=== PATIENT | male | born 1955 | race Caucasian/White ===

== ENCOUNTER 2019-10-28 18:19 | Emergency (ER) | payer MEDICARE, OTHER, SELFPAY ==
[2019-10-28 18:30] VITALS: BP 140/78; PULSE 40; RESP 14; TEMP 36.9; O2SAT 99; BMI 28.3
--- NOTE | 2019-10-28 18:33 | DI.RAD.S_ITS ---
PROCEDURE: XR FINGER LT MIN 2V INDICATIONS: Table saw injury left index finger TECHNIQUE: AP hand, 2 views of the left 1st finger(s) acquired. COMPARISON: None. FINDINGS: Bones: There are small radiopaque densities adjacent to the tuft of the left 1st digit. These may represent tiny radiopaque foreign bodies. Neck could also represent tiny ossific fragments although the adjacent distal phalanx of the 1st digit appears radiographically intact. There is soft tissue irregularity along the distal most aspect of the 1st digit consistent with laceration. 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 IMPRESSION: Tiny radiopaque densities In the distal 1st digit soft tissues are suspicious for tiny foreign bodies. There is no fracture. Dictated by: Polo Velez M.D. on 10/28/2019 at 19:03 Approved by: Polo Velez M.D. on 10/28/2019 at 19:05
--- NOTE | 2019-10-28 18:33 | DI.RAD.S_ITS ---
PROCEDURE: XR FINGER LT MIN 2V INDICATIONS: Table saw injury TECHNIQUE: AP left hand, 2 views of the left 1st finger(s) acquired. COMPARISON: None. FINDINGS: Tiny radiopaque densities adjacent to the tuft of the 1st distal phalanx are suspicious for radiopaque foreign bodies. Soft tissue irregularity representing laceration in the distal 1st digit. There is no fracture. IMPRESSION: Tiny radiopaque foreign bodies in the distal 1st digit with no evidence of fracture. Dictated by: Polo Velez M.D. on 10/28/2019 at 19:05 Approved by: Polo Velez M.D. on 10/28/2019 at 19:06
[2019-10-28] MEDS: BACITRACIN OINT 0.9 GM PCKT 2 APPLIC TOP (19:23)
[2019-10-28] MEDS: LIDO 1%/SOD BICARB 8.4% (10ML) 10 ML SYRINGE INJ (19:23)
[2019-10-28] MEDS: HYDROCODONE/ACET 5/325 TABLET 1 TAB PO (21:29)
--- NOTE | 2019-10-28 21:46 | ED.WOUNDLAC ---
HPI - Wound/Laceration <BASSEM Conley - Last Filed: 10/28/19 22:24> General Chief Complaint: Wound/Laceration Stated Complaint: SAW ACCIDENT LACERATION OF LEFT HAND THUMB SMALL F Time Seen by Provider: 10/28/19 18:36 Source: patient Mode of arrival: Ambulatory Limitations: no limitations History of Present Illness HPI narrative: This is a 64-year-old male, nonsmoker, presents to ED with significant after he had injured left, non dominant hand, thumb and index finger by a table saw at 1 pm today. Patient had received tetanus immunization last year since he had another injury to left 5th finger. Patient has partial nail removed in left thumb with deformed with deep laceration on lateral dorsal aspect of finger. Left index finger with vertical laceration extending from proximal to distal phalange in dorsal aspect. Patient reports aching pain in PIP of 2nd finger. Patient was referred by Dr. Cline at [facility] for xray test and treatment. Patient directed pressure dressing on affected finger and active bleeding has been controlled. Patient reports he has sensation to fingertips on affected fingers. He reports is able to move and flex/extend affected finger with some discomfort. Related Data Previous Rx's Medication Instructions Recorded cephalexin [Keflex] 500 mg PO Q6H 7 Days #28 cap 10/28/19 hydrocodone-acetaminophen [[place]] 1 tab PO TID PRN #7 tab 10/28/19 Allergies Allergy/AdvReac Type Severity Reaction Status Date / Time No Known Drug Allergies Allergy Verified 10/28/19 18:34 Review of Systems <BASSEM Conley - Last Filed: 10/28/19 22:24> Review of Systems Narrative: General: Denies fever, chills, fatigue, malaise, sweats. HEENT: Denies sinus pain, ear pain, sore throat, difficulty swallowing, dizziness. Respiratory: Denies dyspnea, cough, wheezing, hemoptysis, sputum. Cardiovascular: Denies chest pain, palpitations, orthopnea, edema. Gastrointestinal: Denies nausea, vomiting, abdominal pain, diarrhea, constipation, melena. : Denies dysuria, frequency, incontinence, hematuria, urinary retention. Musculoskeletal: See HPI Skin: See HPI Neurologic: Denies weakness, headache, numbness, change in speech, confusion, seizures, incoordination. Psychiatric: No concerning psychosocial issues. 12-point review of systems is negative except for those stated above. Patient History <BASSEM Conley - Last Filed: 10/28/19 22:24> Medical History No significant past medical history (Acute) Surgical History No pertinent past surgical history (Acute) Social History Smoking Status: Unknown if ever smoked Smoking Status: Unknown if ever smoked alcohol intake frequency: 0-2 drinks per day Substance Use Type: does not use Exam <BASSEM Conley - Last Filed: 10/28/19 22:24> Narrative Exam Narrative: General appearance: well developed, well nourished, in no acute distress. Head: normocephalic, atraumatic, no scalp lesions, non-tender. ENT: Hearing grossly intact. Nose without bleeding, purulent discharge. Airway patent. Neck/Thyroid: neck supple, full range of motion, no visible masses or meningeal signs. No JVD, non-tender without lymphadenopathy. Skin: #1) 5 cm vertical deep laceration on dorsal aspect of left 2nd digit extending from proximal to distal phalanges. #2) 5 cm irregular shape deep laceration involving partial nail removal and finger tip lateral finger. Heart: no clubbing, no cyanosis, no edema. Lungs: Breathing even and unlabored. No stridor. No accessory muscles used. Able to speak in full sentences. Chest: normal shape and expansion. Abdomen: non-obese, non-distended. Neurologic: alert and oriented. Cognitive exam, [employer]OR and PNS grossly intact on informal exam. Psych: good eye contact, normal affect. Initial Vital Signs Initial Vital Signs: Vital Signs Temperature 98.5 F 10/28/19 18:30 Pulse Rate 40 L 10/28/19 18:30 Respiratory Rate 14 10/28/19 18:30 Blood Pressure 140/78 10/28/19 18:30 Pulse Oximetry 99 10/28/19 18:30 Extrem Left upper extremity: hand Details: abnormal to inspection, neuromotor exam normal, neurosensory exam normal Details: digital nerve sensory function normal, tendon exam normal Location: of the thumb and of the 2nd digit, tenderness Location: of the thumb and of the 2nd digit, vascular exam Details: radial pulse present, normal ROM of fingers (but pain in 2nd digit PIP with flexion and extension), swelling Location: of the thumb and of the 2nd digit and laceration (Thumb and 2nd digit); no foreign bodies <Alana Chiang MD - Last Filed: 10/29/19 03:47> Initial Vital Signs Initial Vital Signs: Vital Signs Temperature 98.5 F 10/28/19 18:30 Pulse Rate 40 L 10/28/19 18:30 Respiratory Rate 14 10/28/19 18:30 Blood Pressure 140/78 10/28/19 18:30 Pulse Oximetry 99 10/28/19 18:30 Procedures <BASSEM Conley - Last Filed: 10/28/19 22:24> Laceration Repair Left Thumb: Site: upper extremity Size (cm): 5 Description: flap and irregular (partial nail loss in medial aspect) Depth: simple, single layer Local Anesthetic: lidocaine 1% and with bicarb Amount of anesthesia used (mL): 4 Pre-repair: wound explored, irrigated extensively, deep structures intact and wound margins revised (partial nail removal) Skin layer closed with: nylon Size (cm): 4-0 Number of sutures: 7 Technique: simple, interrupted Size: 4-0 and other (Nylon) Number of sutures: 1 (vertical mattress) Left Index: Size (cm): 5 Description: linear, irregular and contaminated Depth: simple, single layer Local Anesthetic: lidocaine 1% and with bicarb Amount of anesthesia used (mL): 4 Pre-repair: wound explored, irrigated extensively and deep structures intact Skin layer closed with: nylon Size (cm): 4-0 Number of sutures: 6 Technique: simple, interrupted Subcutaneous layer closed with: other (Nylon) Size: 4-0 Number of sutures: 1 (Vertical mattress) Scores <BASSEM Conley - Last Filed: 10/28/19 22:24> GCS [place] coma scale eye opening: Spontaneous [place] coma scale verbal response: Orientated Bere coma scale motor response: Obey commands [place] coma scale total score: 15 Course <BASSEM Conley - Last Filed: 10/28/19 22:24> Orders Ordered: Discontinued Medications Hydrocodone Bitart/Acetaminophen ([place] 5/325) 1 tab PO NOW ONE Stop: 10/28/19 21:27 Last Admin: 10/28/19 21:29 Dose: 1 tab Documented by: NOY Hydrocodone Bitart/Acetaminophen (Vicodin 5/325 Prepack) 1 bottle MISC SEEINSTR ONE Stop: 10/28/19 21:46 Last Admin: 10/28/19 22:04 Dose: 1 bottle Documented by: DAVID Bacitracin (Bacitracin) 2 applic TOP NOW ONE Stop: 10/28/19 19:03 Last Admin: 10/28/19 19:23 Dose: 2 applic Documented by: DAVID Cefazolin Sodium (Keflex 250 Mg Prepack) 1 bottle MISC SEEINSTR ONE Stop: 10/28/19 21:46 Last Admin: 10/28/19 22:04 Dose: 500 mg Documented by: DAVID Lidocaine/Sodium Bicarbonate (Buffered Lidocaine 10 Ml Syr) 10 ml INJ NOW ONE Stop: 10/28/19 19:03 Last Admin: 10/28/19 19:23 Dose: 10 ml Documented by: DAVID Vital Signs Vital signs: Vital Signs - 8 hr 10/28/19 22:09 Pulse Rate 70 Blood Pressure 155/80 H Pulse Oximetry 98 <Alana Chiang MD - Last Filed: 10/29/19 03:47> Orders Ordered: Discontinued Medications Hydrocodone Bitart/Acetaminophen ([place] 5/325) 1 tab PO NOW ONE Stop: 10/28/19 21:27 Last Admin: 10/28/19 21:29 Dose: 1 tab Documented by: NOY Hydrocodone Bitart/Acetaminophen (Vicodin 5/325 Prepack) 1 bottle MISC SEEINSTR ONE Stop: 10/28/19 21:46 Last Admin: 10/28/19 22:04 Dose: 1 bottle Documented by: DAVID Bacitracin (Bacitracin) 2 applic TOP NOW ONE Stop: 10/28/19 19:03 Last Admin: 10/28/19 19:23 Dose: 2 applic Documented by: DAVID Cefazolin Sodium (Keflex 250 Mg Prepack) 1 bottle MISC SEEINSTR ONE Stop: 10/28/19 21:46 Last Admin: 10/28/19 22:04 Dose: 500 mg Documented by: DAVID Lidocaine/Sodium Bicarbonate (Buffered Lidocaine 10 Ml Syr) 10 ml INJ NOW ONE Stop: 10/28/19 19:03 Last Admin: 10/28/19 19:23 Dose: 10 ml Documented by: DAVID Vital Signs Vital signs: Vital Signs - 8 hr 10/28/19 22:09 Pulse Rate 70 Blood Pressure 155/80 H Pulse Oximetry 98 MDM - Wound/Laceration <Cipriano Gore-BrittBASSEM - Last Filed: 10/28/19 22:24> Differential Diagnosis Differential diagnosis: Likely laceration and other (contusion of finger, open finger fracture) Medical Records Attestation: I reviewed the patient's medical records. Imaging Data XR-Fingers Thumb LT: Radiologist's Impression: [address] [address] XRay Report Signed Patient: Maurisio Arrieta AMR#: [id number] : 5Acct:[id number] Age/Sex: 64 / MDate of Service: 10/28/19 Loc: ED Accession Number: [id number] Procedure: XR finger LT min 2V Ordering Provider: Alana Chiang MD PROCEDURE: XR FINGER LT MIN 2V INDICATIONS: Table saw injury TECHNIQUE: AP left hand, 2 views of the left 1st finger(s) acquired. COMPARISON: None. FINDINGS: Tiny radiopaque densities adjacent to the tuft of the 1st distal phalanx are suspicious for radiopaque foreign bodies. Soft tissue irregularity representing laceration in the distal 1st digit. There is no fracture. IMPRESSION: Tiny radiopaque foreign bodies in the distal 1st digit with no evidence of fracture. Dictated by: Polo Velez M.D. on 10/28/2019 at 19:05 Approved by: Polo Velez M.D. on 10/28/2019 at 19:0 XR-2nd digit LT: Radiologist's Impression: [address] [address] XRay Report Signed Patient: Maurisio Arrieta AMR#: [id number] : 5Acct:[id number] Age/Sex: 64 / MDate of Service: 10/28/19 Loc: ED Accession Number: [id number] Procedure: XR finger LT min 2V Ordering Provider: Alana Chiang MD PROCEDURE: XR FINGER LT MIN 2V INDICATIONS: Table saw injury left index finger TECHNIQUE: AP hand, 2 views of the left 1st finger(s) acquired. COMPARISON: None. FINDINGS: Bones: There are small radiopaque densities adjacent to the tuft of the left 1st digit. These may represent tiny radiopaque foreign bodies. Neck could also represent tiny ossific fragments although the adjacent distal phalanx of the 1st digit appears radiographically intact. There is soft tissue irregularity along the distal most aspect of the 1st digit consistent with laceration. 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 IMPRESSION: Tiny radiopaque densities In the distal 1st digit soft tissues are suspicious for tiny foreign bodies. There is no fracture. Dictated by: Polo Velez M.D. on 10/28/2019 at 19:03 Approved by: Polo Velez M.D. on 10/28/2019 at 19:05 [facility] Narrative Medical decision making narrative: This is a 64-year-old gentleman with updated tetanus immunization 1 year ago presents to ED with irregular and deep laceration to left 1st and 2nd digit from a table saw today at 1:00 p.m.. Patient was initially evaluated by Dr. Cline at [facility] and was recommended to come to [facility] for x-ray test and treatment. X-ray test on to affected fingers does not show acute findings such as fractures or dislocations. It indicated were small radial plaque densities adjacent to the 1st digit concerns for foreign bodies. Unable to visualize obvious foreign bodies. Affected hand was soaked in Hibiclens water and scrubbed and irrigated with sterile water extensively. Complicated laceration has been repaired by sutures. Please see procedural note. Partially a left thumb nail has been removed. Patient tolerated procedure well. Patient was medicated with [place] sports the end of procedure for tender 2nd PIP joint and medicated with Keflex 1st dose while in ED. patient discharged to home with home wound care instruction, wound recheck in 2 days by PCP, Keflex for prophylactic treatment for infection for next 7 days, pain management with Tylenol and or Motrin for [id number] pain and [place] for severe pain along narcotic medication precautions. Patient provided with 2 finger splint after bulky dressing has been removed for comfort. Patient verbalized understanding in agreement with treatment plan. Discharge Plan Departure Patient Disposition: Home Clinical Impression: Laceration Contusion of finger Qualifiers: Encounter type: initial encounter Finger: index finger Damage to nail status: without damage Laterality: left Qualified Code(s): S60.022A - Contusion of left index finger without damage to nail, initial encounter Discharge Date/Time: 10/28/19 22:22 Instructions: DI for Laceration Repair -- Complex Suture Activity Restrictions/Additional Instructions: You have been diagnosed with [deep laceration to left 1st and 2nd digit from table saw. X-ray test on affected fingers does not indicate fracture. Deep laceration approximately 5 cm each on affected fingers have been repaired with sutures. Thumb laceration with 7 simple interrupted suture with 1 deep vertical mattress suture. Index finger with 7 simple interrupted suture with deep vertical mattress suture. You were provided with Keflex 1st dose in ED. please continue to take 4 times a day for next 7 days to prevent infection. Your also given small dose of [place] prepack for pain management. This is narcotic pain medications that he can cause drowsiness so please do not drive, drink alcohol, or operate heavy equipments. Also he can cause constipation so please take precautions. If pain is not severe, you can use [id number] Tylenol and or Motrin as needed.]. What to do: *Take your medications as directed. *Follow up with your primary care provider in 2-3 days, call for an appointment for wound recheck. Let them know you were seen in the ED and that we asked you to be seen in follow up. Please do not get your wound soaked in the water until suture removal. Keep your dressing intact for next 24 hrs. After then, you could remove your dressing, wash with soap and water. Pat dry with clean paper towel and dress it with antibiotic ointment. You can change dressing as needed and daily. Please monitor for signs and symptoms for infection such as increasing redness, swelling, warmth, pain, fever, purulent discharge. If this occurs, please return to ED or follow up with your primary care physician since your wound may be gotten infected. Please follow up with your primary care provider in 2-3 days for recheck wound. Your suture should be removed [7-10 ] days. This can be done by your primary provider, walk-in clinic or here in ED. Please keep your wound clean, dry and intact all times. After bulky dressing has removed (24 hrs), please use finger splint that has been provided for comfort in natural finger position. Prescriptions: New cephalexin [Keflex] 500 mg capsule 500 mg PO Q6H 7 Days Qty: 28 RF: 0 hydrocodone-acetaminophen [[place]] 5-325 mg tablet 1 tab PO TID PRN (Reason: pain) Qty: 7 RF: 0 Referrals: Dixon Cline MD [Physician] - <Alana Chiang MD - Last Filed: 10/29/19 03:47> Cosign ED Attending Cosignature Attestation: I was immediately available in the department for consultation throughout this patient's visit. I agree with documentation as above. Alana Chiang MD
[2019-10-28] MEDS: cephALEXin 250 MG PREPACK 1 BOTTLE MISC (22:04)
[2019-10-28] MEDS: HYDROCODONE/ACET 5/325 PREPACK 1 BOTTLE MISC (22:04)
[2019-10-28 22:09] VITALS: BP 155/80; PULSE 70; O2SAT 98
== END 2019-10-28 22:22 | disposition home or self-care (01) ==
PROVIDERS: Emergency Provider Nurse Practitioner Family
DX: S61.112A Laceration without foreign body of left thumb with damage to nail, initial encounter (principal); S61.211A Laceration without foreign body of left index finger without damage to nail, initial encounter; W29.3XXA Contact with powered garden and outdoor hand tools and machinery, initial encounter; S60.022A Contusion of left index finger without damage to nail, initial encounter
CPT/HCPCS: 12004; 73140; 99283

== ENCOUNTER → 2021-02-17 11:09 | Outpatient (CLI) | payer MEDICARE, OTHER, SELFPAY ==
--- NOTE | 2021-02-17 | DI.US.S_ITS ---
PROCEDURE: US SCROTUM INDICATIONS: RIGHT TESTICULAR PAIN TECHNIQUE: Real-time scanning was performed of the scrotum and testicles, with image documentation. Color and pulse Doppler interrogation was performed of both testicles. COMPARISON: None. FINDINGS: Right: Testicle is normal in size at 4.6 x 2.2 x 3.7 cm, and homogenous in echotexture. Epididymis is normal in overall size and morphology. No hydrocele or varicoceles. Overlying scrotal skin is normal in thickness. Left: Testicle is normal in size at 4.6 x 2.2 x 2.6 cm, and homogeneous in echotexture. Epididymis is normal in overall size and morphology. No hydrocele or varicoceles. Overlying scrotal skin is normal in thickness. Doppler: Color and pulse Doppler demonstrate normal and symmetric arterial flow in both testicles. IMPRESSION: Negative examination as above. Dictated by: Pedro Jiang M.D. on 02/17/2021 at 15:10 Approved by: Pedro Jiang M.D. on 02/17/2021 at 15:10
== END ==
PROVIDERS: PCP Family Medicine; Referring Provider Family Medicine; Visit Provider Family Medicine
DX: N50.811 Right testicular pain (principal)
CPT/HCPCS: 76870